=== PATIENT | female | born 1935 ===

== ENCOUNTER 2018-03-15 12:00 | Inpatient (IN) | payer OTHER ==
[~2018-03-15] VITALS: Ht 152.4 cm; Wt 81.6 kg
[2018-03-15] MEDS ORDERED: PROTONIX40 MG PO (13:04)
[2018-03-15] MEDS ORDERED: IBESARTAN (13:04)
[2018-03-15] MEDS ORDERED: NEURONTIN300 MG PO (13:05)
[2018-03-15] MEDS ORDERED: RESTORIL30 MG PO (13:06)
[2018-03-15] MEDS ORDERED: KLONOPIN (13:06)
[2018-03-15] MEDS ORDERED: PROBIOTIC1 EAC1 PO (13:07)
[2018-03-24] MEDS ORDERED: GABAPENTIN800 MG PO (10:01)
[2018-03-24] MEDS ORDERED: DOCUSATE SODIU100 MG PO (10:02)
[2018-03-24] MEDS ORDERED: AMOX-CLAV 875-1 EACH PO (10:02)
[2018-03-24] MEDS ORDERED: PERCOCET 5-3251 EACH PO (10:03)
[2018-03-24] MEDS ORDERED: CLONAZEPAM1 MG PO (10:03)
== END 2018-03-24 15:42 | DRG 454 ==
LOC: O/R 03-23 04:15 → SURH 03-23 12:00 → PED 03-23 18:47
PROVIDERS: Orthopaedic Surgery Orthopaedic Surgery of the Spine
PROC: 0SG1071 Fusion of 2 or more Lumbar Vertebral Joints with Autologous Tissue Substitute, Posterior Approach, Posterior Column, Open Approach (ICD-10-PCS; 2018-03-23)
PROC: 0ST20ZZ Resection of Lumbar Vertebral Disc, Open Approach (ICD-10-PCS; 2018-03-23)
PROC: 0SG10AJ Fusion of 2 or more Lumbar Vertebral Joints with Interbody Fusion Device, Posterior Approach, Anterior Column, Open Approach (ICD-10-PCS; 2018-03-23)
PROC: 0SJ Lower Joints, Inspection (ICD-10-PCS; 2018-03-23)
PROC: 0SP00AZ Removal of Interbody Fusion Device from Lumbar Vertebral Joint, Open Approach (ICD-10-PCS; 2018-03-23)
PROC: 07DS3ZZ Extraction of Vertebral Bone Marrow, Percutaneous Approach (ICD-10-PCS; 2018-03-23)
PROC: 0SG10A0 Fusion of 2 or more Lumbar Vertebral Joints with Interbody Fusion Device, Anterior Approach, Anterior Column, Open Approach (ICD-10-PCS; principal; 2018-03-23 13:00)
DX: M96.0 Pseudarthrosis after fusion or arthrodesis (principal); M51.06 Intervertebral disc disorders with myelopathy, lumbar region; M48.061 Spinal stenosis, lumbar region without neurogenic claudication; M43.16 Spondylolisthesis, lumbar region; I10 Essential (primary) hypertension

== ENCOUNTER → 2020-10-17 | Emergency (ER) | payer OTHER ==
[~2020-10-17] VITALS: Ht 152.4 cm; Wt 81.6 kg
[~2020-10-17] MED LIST: AMOX-CLAV 875-1 EACH PO; CLONAZEPAM1 MG PO; COZAAR100 MG; DOCUSATE SODIU100 MG PO; GABAPENTIN800 MG PO; IBESARTAN; KLONOPIN; NEURONTIN300 MG PO; PERCOCET 5-3251 EACH PO; PROBIOTIC1 EAC1 PO; PROTONIX40 MG PO; QUETIAPINE FUM400 M1; RESTORIL30 MG PO
== END | disposition left against medical advice (07) ==
LOC: ER 15:48
DX: K80.80 Other cholelithiasis without obstruction (principal); N28.1 Cyst of kidney, acquired